=== PATIENT | male | born 1985 | race Native Hawaiian/Other Pacific Islander ===

== ENCOUNTER → 2023-07-15 12:38 | Outpatient (CLI) | payer OTHER, SELFPAY ==
--- NOTE | 2023-07-15 12:41 | DI.MRI.S_ITS ---
PROCEDURE: MR WRIST LT W CON INDICATIONS: Scapholunate Strain. Left wrist pain TECHNIQUE: After the administration of 3-4 mL of dilute intra-articular Gadolinium contrast into the radiocarpal compartment, coronal T1 spin echo with fat saturation and T2 fast spin echo with fat saturation, axial T1 spin echo and T2 fast spin echo with fat saturation, sagittal T1 spin echo with and without fat saturation through the wrist. COMPARISON: None. FINDINGS: Image quality: Excellent. Bones and cartilage: The carpal bones are normally aligned. No bone marrow contusions or fractures. No evidence for avascular necrosis. Mild radiocarpal joint osteoarthritic changes are noted with joint space narrowing and subchondral sclerosis and cyst formation. Carpal ligaments: There is rupture involving dorsal component of scapholunate ligament with gadolinium extravasation into the mid-carpal compartment. The lunotriquetral ligament is intact. The radioscaphocapitate and radiolunotriquetral ligaments appear intact. The arcuate ligament and short radiolunate ligament also appear normal. The dorsal intercarpal and radiotriquetral ligaments appear intact. On sagittal images, the pisohamate ligament appears intact. Triangular fibrocartilage complex: There is perforation of triangular fibrocartilage complex near its radial insertion with gadolinium extravasation into the distal radioulnar joint. The adjacent meniscal homolog appears normal. The ulnar collateral ligament appears intact. The extensor carpi ulnaris tendon appears thickened at the level of ulnar styloid. Tendons and soft tissues: The carpal tunnel structures appear normal, including the median nerve. The ulnar nerve appears normal within Guyon's canal. All six extensor tendon compartments demonstrate normal morphology, without pathologic tendon sheath fluid. No soft tissue ganglion cysts. IMPRESSION: 1. Finding is consistent with rupture involving dorsal component of scapholunate ligament with contrast extravasating into mid-carpal compartment. The lunotriquetral ligament is intact. 2. Suggestion of perforation involving TFC near its radial insertion. Contrast is seen extravasating into distal radial ulnar joint. 3. Tendinosis involving extensor carpi ulnaris at the level of ulnar styloid. 4. 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 No fracture or dislocation. No evidence of avascular necrosis. Dictated by: Dwayne Perales M.D. on 07/15/2023 at 16:14 Approved by: Dwayne Perales M.D. on 07/15/2023 at 16:20
--- NOTE | 2023-07-15 12:41 | DI.RAD.S_ITS ---
PROCEDURE: FL JOINT INJECTION SMALL LT INDICATIONS: Scapholunate Strain COMPARISON: None. TECHNIQUE: The indications, alternatives, benefits, risks, and complications of the procedure were explained to the patient. Written informed consent was obtained and placed in the chart. The patient was placed in an appropriate position on the fluoroscopy table, and a site was chosen for percutaneous access under fluoroscopic guidance. The site was prepped and draped in a sterile fashion. Local anesthetic was administered using a 1% lidocaine solution. A hypodermic or spinal needle was then used to access the symptomatic joint. Intra-articular location of the needle tip was confirmed by injecting a small amount of contrast, and once location was confirmed in the radiocarpal joint, the gadolinium/Isovue mixture was administered as per protocol. The needle was then withdrawn, and a bandage applied to the puncture site. Fluoro time: 0.4 minutes. 1 image was saved. FINDINGS: Joint injected: Wrist joint Medications injected: See nurses notes Patient's pain before injection: 1 out of 10. Patient's pain after injection: 1 out of 10. Complications: None. IMPRESSION: Successful fluoroscopically guided administration gadolinium contrast into the wrist joint. Note: Small amount of extravasation into the anterior soft tissues of the wrist was noted prior to entering the wrist joint with a 25 gauge needle. Dictated by: Johny López M.D. on 07/16/2023 at 13:17 Approved by: Johny López M.D. on 07/17/2023 at 9:40
[2023-07-15] MEDS: LIDOCAINE 1% 20 ML INJ (13:55)
[2023-07-15] MEDS: SODIUM CHLORIDE 0.9 % 20 ML VIAL IV (13:56)
== END ==
PROVIDERS: Referring Provider Orthopaedic Surgery; Visit Provider Orthopaedic Surgery
DX: M19.032 Primary osteoarthritis, left wrist (principal); M25.332 Other instability, left wrist
CPT/HCPCS: 20600; 20605; 73222; 77002